=== PATIENT | female | born 1975 | race American Indian/Alaskan Native ===

== ENCOUNTER 2019-05-22 08:34 | Outpatient (CLI) | payer BC ==
--- NOTE | 2019-05-22 13:38 | Ultrasound Report ---
ULTRASOUND ABDOMEN, LIMITED (RIGHT UPPER QUADRANT) INDICATION: RUQ PAIN(789.01). COMPARISON: None available. FINDINGS: PANCREAS: Visualized portion shows no significant abnormality. LIVER: No significant abnormality. GALLBLADDER: No significant abnormality. BILE DUCTS: No significant abnormality. Common bile duct measures 2.2 mm. FREE FLUID: None. ADDITIONAL FINDINGS: Images of the right kidney are normal. IMPRESSION: No significant sonographic abnormality of the right upper quadrant. No evidence of gallst ones. Signer Name: Mg Ivan MD Signed: 05/22/2019 1:33 PM Workstation Name: [id number]
== END 2019-05-22 08:35 | disposition home or self-care (01) ==
LOC: US 08:34
PROVIDERS: ATTEND Internal Medicine
DX: R10.11 Right upper quadrant pain (principal)
CPT/HCPCS: 76705

== ENCOUNTER 2019-07-05 11:30 | Day surgery (SDC) | payer BC ==
[~2019-07-05 11:30] MED LIST: NACL 0.9% 1000 ML 1,000 ML IV SCH
[2019-07-05 12:00] VITALS: BP 136/89
--- NOTE | 2019-07-05 13:49 | Anesthesia Day of Surgery ---
Anesthesia Day of Surgery - Day of Surgery Patient Examined: Yes Patient H&P Reviewed: Yes Patient is NPO: Yes
--- NOTE | 2019-07-05 13:49 | Anesthesia Consultation ---
Anesthesia Consult and Med Hx Date of service: 07/05/19 - Airway Anesthetic Teeth Evaluation: Good ROM Head & Neck: Adequate Mental/Hyoid Distance: Adequate Mallampati Class: Class I Intubation Access Assessment: Good - Pulmonary Exam CTA: Yes - Cardiac Exam Cardiac Exam: RRR - Pre-Operative Health Status ASA Pre-Surgery Classification: ASA1 Proposed Anesthetic Plan: MAC - Pulmonary Hx Smoking: No Hx Respiratory Symptoms: No - Cardiovascular System Hx Hypertension: No Hx Heart Attack/AMI: No - Central Nervous System CVA: No - Endocrine Hx Renal Disease: No Hx Liver Disease: No Hx Insulin Dependent Diabetes: No Hx Non-Insulin Dependent Diabetes: No Hx Thyroid Disease: No - Other Systems Hx Obesity: No - Additional Comments Anesthesia Medical History Comments: No hx anesthetic complications.
== END 2019-07-05 11:31 | disposition home or self-care (01) ==
LOC: GIO 11:30
PROVIDERS: ATTEND Internal Medicine Gastroenterology
DX: R10.84 Generalized abdominal pain (principal); R11.0 Nausea; Z53.8 Procedure and treatment not carried out for other reasons; Z79.899 Other long term (current) drug therapy; Z98.51 Tubal ligation status; Z98.891 History of uterine scar from previous surgery; Z98.890 Other specified postprocedural states
CPT/HCPCS: 81025; J7030

== ENCOUNTER 2019-07-06 12:46 | Day surgery (SDC) | payer BC ==
[2019-07-06] MEDS ORDERED: ZOFRAN ONE (13:59)
[2019-07-06] MEDS ORDERED: DIPRIVAN 10 MG/ML IV ONE (13:59)
[2019-07-06] MEDS ORDERED: WATER FOR IRRIG STERILE IR ONE (14:00)
--- NOTE | 2019-07-06 14:23 | Anesthesia Consultation ---
Anesthesia Consult and Med Hx Date of service: 07/06/19 - Airway Anesthetic Teeth Evaluation: Good ROM Head & Neck: Adequate Mental/Hyoid Distance: Adequate Mallampati Class: Class II Intubation Access Assessment: Probably Good - Pulmonary Exam CTA: Yes - Cardiac Exam Cardiac Exam: RRR - Pre-Operative Health Status ASA Pre-Surgery Classification: ASA1 Proposed Anesthetic Plan: MAC - Pulmonary Hx Smoking: No Hx Respiratory Symptoms: No - Cardiovascular System Hx Hypertension: No Hx Heart Attack/AMI: No - Central Nervous System CVA: No - Endocrine Hx Renal Disease: No Hx Liver Disease: No Hx Insulin Dependent Diabetes: No Hx Non-Insulin Dependent Diabetes: No Hx Thyroid Disease: No - Other Systems Hx Obesity: No - Additional Comments Anesthesia Medical History Comments: Rescheduled from 07/05/19. No change in health overnight.
--- NOTE | 2019-07-06 14:23 | Anesthesia Day of Surgery ---
Anesthesia Day of Surgery - Day of Surgery Patient Examined: Yes Patient H&P Reviewed: Yes Patient is NPO: Yes
--- NOTE | 2019-07-06 14:56 | Operative Report ---
PROCEDURE: EGD. INDICATION: 1. Nausea, vomiting. 2. Epigastric pain. 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 COMPLICATIONS: None. DESCRIPTION OF PROCEDURE: The patient brought to procedure suite. The patient had the procedure discussed with her at length. All risks, complications, and benefits discussed after which the patient signed for the procedure performed. The patient was placed in left lateral decubitus position. Mouth block placed in the patient's oral cavity. After adequate sedation medication as above, endoscope placed in the mouth and brought to level of the second portion of duodenum. Retroflexion view performed. The patient's vital signs remained stable throughout the procedure. FINDINGS: There was noted to be an irregular Z line, probable massive reflux noted 35 cm from the gums. Medium hiatal hernia in that area. Biopsies were taken and sent to pathology. There was noted to be encasement noted 40 cm from the gums consistent with the patient's known history of lap band. This was traversed and integrated in the stomach. There was mild antral gastritis noted. Biopsies were taken and sent to pathology. Remaining stomach otherwise appeared to be normal. The duodenum appeared to be normal. Retroflexion view performed in the stomach showed no other pathology. It should be noted that a small amount of food particles were noted in the stomach. The patient tolerated the procedure well. No complications during the procedure. IMPRESSION: 1. Irregular Z line, probable massive reflux with biopsies performed. 2. Medium hiatal hernia. 3. Lap band area noted and intact and easily passed with entry into the stomach. 4. Gastritis, biopsies performed. 5. Otherwise, normal EGD. RECOMMENDATIONS: 1. Follow up biopsy results. 2. Stool for H. pylori positive, we will treat. 3. PPI daily. 4. Consider HIDA scan as an outpatient. 5. Follow up in clinic in 2-3 months. JOB# [id number] CAB/NTS
[2019-07-06 15:16] VITALS: BP 105/69
== END 2019-07-06 12:47 | disposition home or self-care (01) ==
LOC: GIO 12:46
PROVIDERS: ATTEND Internal Medicine Gastroenterology
DX: K29.50 Unspecified chronic gastritis without bleeding (principal); K44.9 Diaphragmatic hernia without obstruction or gangrene; K21.9 Gastro-esophageal reflux disease without esophagitis; Z98.51 Tubal ligation status; Z98.891 History of uterine scar from previous surgery; Z98.890 Other specified postprocedural states
CPT/HCPCS: 43239; 81025; 88305; 88342; J2405; J2704; J7030

== ENCOUNTER 2019-08-23 12:03 | Outpatient (CLI) | payer BC ==
[2019-08-23 13:07] LABS: Hepatitis C Virus Antibody Non-Reactive (NonReactive)
[2019-08-27 05:50] LABS: HIV-1 Antibody Differentiation SEE SCANNED RESULT; HIV-2 Antibody Differentiation SEE SCANNED RESULT
== END 2019-08-23 12:04 | disposition home or self-care (01) ==
LOC: LAB 12:03
DX: Z11.3 Encounter for screening for infections with a predominantly sexual mode of transmission (principal); Z11.59 Encounter for screening for other viral diseases; Z20.2 Contact with and (suspected) exposure to infections with a predominantly sexual mode of transmission
CPT/HCPCS: 36415; 86592; 86689; 86706; 86803; 87529

== ENCOUNTER 2019-12-17 07:14 | Outpatient (CLI) | payer BC ==
--- NOTE | 2019-12-17 10:07 | Fluoroscopy Report ---
UPPER GI HISTORY: GASTRO-ESOPHEGEAL REFLUX DISEASE WITHOUT ESOPHEGITIS. Lap band evaluation. TECHNIQUE: Single and double contrast barium technique utilized to evaluate the esophagus, stomach, and duodenal C-loop. FINDINGS: Jailer Chief film of the abdomen demonstrates a lap band in the left upper quadrant which appears in adequat e position. Deglutition was normal. The esophagus demonstrates no mucosal abnormality. The esophagus did appear m ildly dilated with delayed emptying through the lap band. Occasional episodes of esophageal spasm wer e witnessed during this exam. There is no convincing evidence for slippage or erosion of the lap band. The gastric cavity is normal caliber and mucosal pattern. The duodenal bulb and duodenal sweep are no rmal. IMPRESSION: The lap band appears in appropriate position with no convincing evidence for slippage. T here was significant delay in passage of the oral contrast through the lap band device. I suspect cristina t it may be too tight. The patient was asymptomatic. Fluoroscopic time: 2.5 minutes Number of fluoroscopic images: 45 Signer Name: Bereket Dyer Jr, MD Signed: 12/17/2019 10:03 AM Workstation Name: [id number]
== END 2019-12-17 07:15 | disposition home or self-care (01) ==
LOC: FLUORO 07:14
PROVIDERS: ATTEND Surgery
DX: K21.9 Gastro-esophageal reflux disease without esophagitis (principal); Z98.84 Bariatric surgery status
CPT/HCPCS: 74246

== ENCOUNTER 2020-07-04 02:41 | Emergency (ER) | payer BC ==
[2020-07-04 02:49] VITALS: BP 138/61
[2020-07-04] MEDS ORDERED: IBUPROFEN 600 MG TAB PO ONE (04:43)
[2020-07-04] MEDS ORDERED: ACETAMINOPHEN 500 MG TAB PO ONE (04:43)
--- NOTE | 2020-07-04 05:38 | XRay Report ---
LEFT HIP 2 VIEWS INDICATION / CLINICAL INFORMATION: fall - left hip pain COMPARISON: None available. FINDINGS: BONES / JOINT(S): No acute fracture or subluxation. 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 SOFT TISSUES: No significant abnormality. ADDITIONAL FINDINGS: None. Signer Name: Kuldip Tran MD Signed: 07/04/2020 5:34 AM Workstation Name: [id number]
--- NOTE | 2020-07-04 05:54 | Emergency Department Report ---
ED Fall HPI - General Chief Complaint: Back Pain/Injury Stated Complaint: BACK PAIN Source: patient Mode of arrival: Ambulatory - History of Present Illness Initial Comments: Patient is a 45-year-old -[place] female with no past medical history presents to the ED with complaint of acute onset persistent severe left hip pain after she tripped down the stairs and fell down landing on the left hip about 20 hours ago. Patient states that initially the pain was mild but subsequently the pain started getting worse and that she has not been able to sleep because of worsening left hip pain. Patient states that the pain is worse with ambulation or at rest. Patient denies low back pain, dizziness, head or neck injuries, chest pain, shortness of breath, loss of consciousness, numbness and tingling or weakness of lower extremities bilaterally, change in vision, syncope, dizziness, headache, nausea and vomiting, urinary or bowel incontinence or saddle paresthesia. 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 denies: headache, neck pain, numbness, weakness, chest paint, abdominal pain, hematuria, unable to walk, lightheaded, vertigo, confusion, other - Related Data Previous Rx's Medication Instructions Recorded Last Taken Type Naproxen 500 mg PO Q12H PRN #30 tablet 07/04/20 Unknown Rx methOCARBAMOL [Robaxin TAB] 750 mg PO Q12H PRN #20 tab 07/04/20 Unknown Rx traMADoL [Ultram] 50 mg PO Q6HR PRN #12 tablet 07/04/20 Unknown Rx Allergies Allergy/AdvReac Type Severity Reaction Status Date / Time No Known Allergies Allergy Verified 07/05/19 08:34 ED Review of Systems ROS: Stated complaint: BACK PAIN Other details as noted in HPI Constitutional: denies: chills, fever Eyes: denies: eye pain, eye discharge, vision change ENT: denies: ear pain, throat pain Respiratory: denies: cough, shortness of breath, wheezing Cardiovascular: denies: chest pain, palpitations Endocrine: no symptoms reported Gastrointestinal: denies: abdominal pain, nausea, diarrhea Genitourinary: denies: urgency, dysuria, discharge Musculoskeletal: arthralgia (Left hip pain). denies: back pain, joint swelling Skin: denies: rash, lesions Neurological: denies: headache, weakness, paresthesias Psychiatric: denies: anxiety, depression Hematological/Lymphatic: denies: easy bleeding, easy bruising ED Past Medical Hx - Past Medical History Previous Medical History?: No Hx Hypertension: No Hx Heart Attack/AMI: No Hx Liver Disease: No Hx Renal Disease: No - Surgical History Past Surgical History?: Yes Hx Breast Surgery: Yes (REDUCTION) Additional Surgical History: C-Sect X2 - Social History Smoking Status: Never Smoker Substance Use Type: Alcohol - Medications Home Medications: Home Medications Medication Instructions Recorded Confirmed Last Taken Type Naproxen 500 mg PO Q12H PRN #30 tablet 07/04/20 Unknown Rx methOCARBAMOL [Robaxin TAB] 750 mg PO Q12H PRN #20 tab 07/04/20 Unknown Rx traMADoL [Ultram] 50 mg PO Q6HR PRN #12 tablet 07/04/20 Unknown Rx ED Physical Exam - General Limitations: No Limitations General appearance: alert, in no apparent distress - Head Head exam: Present: atraumatic, normocephalic, normal inspection - Eye Eye exam: Present: normal appearance, PERRL, EOMI Pupils: Present: normal accommodation - ENT ENT exam: Present: normal exam, normal orophraynx, mucous membranes moist, TM's normal bilaterally, normal external ear exam - Neck Neck exam: Present: normal inspection, full ROM - Respiratory Respiratory exam: Present: normal lung sounds bilaterally. Absent: respiratory distress, wheezes, rales, rhonchi, chest wall tenderness, accessory muscle use, decreased breath sounds, prolonged expiratory - Cardiovascular Cardiovascular Exam: Present: regular rate, normal rhythm, normal heart sounds. Absent: systolic murmur, diastolic murmur, rubs, gallop - GI/Abdominal GI/Abdominal exam: Present: soft, normal bowel sounds. Absent: tenderness, guarding, rebound, hyperactive bowel sounds, hypoactive bowel sounds, org anomegaly - Extremities Exam Extremities exam: Present: normal inspection, full ROM, tenderness (Palpable left hip tenderness with limited range of motion due to pain), normal capillary refill. Absent: pedal edema, joint swelling, calf tenderness - Back Exam Back exam: Present: normal inspection, full ROM. Absent: tenderness, CVA tenderness (R), CVA tenderness (L), muscle spasm, paraspinal tenderness, vertebral tenderness - Neurological Exam Neurological exam: Present: alert, oriented X3, CN II-XII intact, normal gait, reflexes normal - Psychiatric Psychiatric exam: Present: normal affect, normal mood - Skin Skin exam: Present: warm, dry, intact, normal color. Absent: rash ED Course Vital Signs 07/04/20 02:44 Temperature 98.7 F Pulse Rate 107 H Respiratory 16 Rate Blood Pressure 138/61 O2 Sat by Pulse 100 Oximetry ED Medical Decision Making - Radiology Data Radiology results: report reviewed, image reviewed Findings [address] [address] XRay Report Signed Patient: MARÍA SANFORD MR#: [id number] : 1975 Acct:[id number] Age/Sex: 45 / F ADM Date: 07/04/20 Loc: ED Attending Dr: Ordering Physician: PAMELA RAINEY Date of Service: 07/04/20 Procedure(s): XR hip 2-3V LT Accession Number(s): [id number] cc: PAMELA RAINEY Fluoro Time In Minutes: LEFT HIP 2 VIEWS INDICATION / CLINICAL INFORMATION: fall - left hip pain COMPARISON: None available. FINDINGS: BONES / JOINT(S): No acute fracture or subluxation. 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 SOFT TISSUES: No significant abnormality. ADDITIONAL FINDINGS: None. Signer Name: Kuldip Tran MD Signed: 07/04/2020 5:34 AM Workstation Name: [id number] Transcribed By: ES Dictated By: Kuldip Tran MD Electronically Authenticated By: Kuldip Tran MD Signed Date/Time: 07/04/2034 DD/ TD/TT: - Medical Decision Making This is a 45-year-old -[place] female with no past medical history presents to the ED with complaint of acute onset persistent severe left hip pain after she tripped down the stairs and fell down landing on the left hip about 20 hours ago. Patient states that initially the pain was mild but subsequently the pain started getting worse and that she has not been able to sleep because of worsening left hip pain. Patient states that the pain is worse with ambulation or at rest. In the ED, patient is alert and oriented x3 and is not in distress. Patient however appears to be in pain and is tachycardic in triage. Patient was treated for pain in the ED and left hip x-ray shows no acute fracture or subluxation but mild degenerative joint disease. On reevaluation, patient's pain is well controlled medications. Patient will discharge home on pain medications and muscle relaxants and was advised to follow-up with her primary care physician in 5 to 7 days for reevaluation or return to the ED immediately if symptoms get worse. - Differential Diagnosis Hip contusion; hip fracture; muscle strain; hip sprain; hip DJD Critical care attestation.: If time is entered above; I have spent that time in minutes in the direct care of this critically ill patient, excluding procedure time. ED Disposition Clinical Impression: Strain of muscle, fascia and tendon of left hip, initial encounter Contusion of left hip and thigh Qualifiers: Encounter type: initial encounter Qualified Code(s): S70.02XA - Contusion of left hip, initial encounter; S70.12XA - Contusion of left thigh, initial encounter Sprain of left hip Qualifiers: Encounter type: initial encounter Qualified Code(s): S73.102A - Unspecified sprain of left hip, initial encounter Disposition: DC- TO HOME OR SELFCARE Is pt being admited?: No Does the pt Need Aspirin: No Condition: Stable Instructions: Muscle Strain (ED), Hip Sprain (ED), Contusion in Adults (ED) Additional Instructions: The left hip x-ray shows no acute fractures or subluxations but mild symmetric DJD at the hips. Therefore take pain medications and muscle relaxants as needed with food, drink plenty of fluids and follow-up with the primary care physician in 5 to 7 days for reevaluation. Return to the ED immediately if symptoms get worse. Prescriptions: Naproxen 500 mg PO Q12H PRN #30 tablet PRN Reason: Pain , Severe (7-10) methOCARBAMOL [Robaxin TAB] 750 mg PO Q12H PRN #20 tab PRN Reason: Muscle Spasm traMADoL [Ultram] 50 mg PO Q6HR PRN #12 tablet PRN Reason: Pain Referrals: [facility] [Provider Group] - 3-5 Days Time of Disposition: 05:53 Print Language: PORTUGUESE
== END 2020-07-04 06:30 | disposition home or self-care (01) ==
LOC: ED 02:41
DX: S76.012A Strain of muscle, fascia and tendon of left hip, initial encounter (principal); S70.12XA Contusion of left thigh, initial encounter; Z98.890 Other specified postprocedural states; W01.0XXA Fall on same level from slipping, tripping and stumbling without subsequent striking against object, initial encounter; Y93.89 Activity, other specified; Y92.89 Other specified places as the place of occurrence of the external cause; Y99.8 Other external cause status
CPT/HCPCS: 99283

== ENCOUNTER 2020-10-07 12:21 | Outpatient (CLI) | payer BC ==
[2020-10-07 13:30] LABS: Hepatitis C Virus Antibody Non-Reactive (NonReactive)
== END 2020-10-07 12:22 | disposition home or self-care (01) ==
LOC: LAB 12:21
PROVIDERS: ATTEND Student in an Organized Health Care Education/Training Program
DX: Z11.3 Encounter for screening for infections with a predominantly sexual mode of transmission (principal); Z20.2 Contact with and (suspected) exposure to infections with a predominantly sexual mode of transmission
CPT/HCPCS: 36415; 86592; 86689; 86803; 87350; 87529